=== PATIENT | male | born 1975 | race Caucasian/White ===

== ENCOUNTER 2017-02-04 16:36 | Inpatient (IN) | payer OTHER ==
--- NOTE | 2017-02-04 16:59 | EDPHY ---
H & P Source: Patient, RN/MD, Other - Medical/Surgical History Hx Asthma: No Hx Chronic Respiratory Disease: No Hx Diabetes: No Hx Cardiac Disease: No Hx Renal Disease: No Hx Cirrhosis: No Hx Alcoholism: No Hx HIV/AIDS: No Hx Splenectomy or Spleen Trauma: No Other PMH: hernia, cellulitis rt foot - Social History Smoking Status: Former smoker Time Seen by Provider: 02/04/17 16:49 HPI/ROS: HPI: This is a 41-year-old male who presents with Chief Complaint:M1 Location:psych Quality:M1 hold Duration: Few weeks Signs and Symptoms: + auditory and visual command hallucinations, + suicidal ideation with a plan, no homicidal ideation, + paranoid Timing: Acute on chronic Severity: Severe Context: History of schizoaffective disorder. Dr. Yuko Bliss, this is the current treating psychiatrist for patient. Patient has been involved with [facility] since 2008. He has been admitted both voluntary involuntary basis following hospitalizations for suicide attempts or suicidal ideation and psychosis. Patient has a history of mental illness and has been hospitalist after at least 3 serious suicide attempts, the last hospitalization for suicidal ideation being in 2012. Since 2013 Mr. Thakur has been compliant with medication living in his own apartment until recently he has begun to threaten suicide again is locked himself in his apartment and refuses to leave. Patient turning 41 years old soon is negatively reflecting on his life. One of his previous therapist is passing away and is very upset about this as well. He has localized that he wants to kill himself before the of his brothers baby because if he does after that could be harmful to the baby. Patient's last appointment at [facility] was approximately 2 weeks ago. He advises therapist that he has a 1000 mg of medication with him and he wants to take them all at once. In further conversation patient asked for 2 weeks applied medication is not to kill him. His therapist is concerned that he is no longer taking his medication rather hoarding with idea to use the pills to attempt suicide. Patient reports that he has not slept in 5 days. Went to a hotel last night and slept for approximately 12 hr but still feels extremely tired. He does report that he has not been taking his clonazepam or trazodone for the last few weeks did restart taking them on Saturday. When he returned her home from the hotel this afternoon there was up please card at his door and he called the number. He assumed he knew that is therapist was looking for him involuntarily came into the hospital for further evaluation and treatment. Denies any medical history. Denies chest pain, abdominal pain, nausea, vomiting. Modifying Factors: None Comment: ROS: see HPI Constitutional: No fever, no chills, no weight loss Eyes: No blurred vision Respiratory: No shortness of breath, no cough Cardiovascular: No chest pain Gastrointestinal: No nausea, no vomiting, no diarrhea Genitourinary: No dysuria Extremities: No myalgias Neurologic: No weakness, no numbness Skin: No rashes Hematologic: No bruising, no bleeding MEDICAL/SURGICAL/SOCIAL HISTORY: Medical history: Generally healthy. Does not take any regular medications. Surgical history: Tonsillectomy, bilateral inguinal hernia repair as an Social history: Unemployed. CONSTITUTIONAL: Polite and cooperative, tidy adult white male, awake and alert , no obvious distress HEENT: Atraumatic and normocephalic, PERRL, EOMI. Tympanic membranes clear. Oropharynx clear, no exudate and moist pink mucosa. Airway patent. No lymphadenopathy. No meningismus. Cardiovascular: Normal S1/S2, regular rate, regular rhythm, without murmur rub or gallop. PULMONARY/CHEST: Symmetrical and nontender. Clear to auscultation bilaterally. Good air movement. No accessory muscle usage. ABDOMEN: Soft, nondistended, nontender, no rebound, no guarding, no peritoneal signs, no masses or organomegaly. No CVAT. EXTREMITIES: 2/2 pulses, strength 5/5, no deformities, no clubbing, no cyanosis or edema. NEUROLOGICAL: no focal neuro deficits. GCS 15. SKIN: Warm and dry, no erythema. no rash. Good capillary refill. PSYCH: Fair eye contact, no flight of ideas, someone tangential disorganized thought process, relatively good insight and judgment, + auditory and visual command hallucinations, + suicidal ideation with a plan, no homicidal ideation, paranoid ([place]) Constitutional: Initial Vital Signs Temperature (C) 36.8 C 02/04/17 16:36 Heart Rate 117 H 02/04/17 16:36 Respiratory Rate 16 02/04/17 16:36 Blood Pressure 119/81 H 02/04/17 16:36 O2 Sat (%) 93 02/04/17 16:36 O2 Delivery Mode Room Air Allergies/Adverse Reactions: No Known Allergies Allergy (Unverified 07/08/14 15:36) Home Medications: Medication Instructions Recorded cloZAPine [Clozapine] 200 mg PO HS 02/04/17 traZODone [traZODONE 50MG (*)] 50 mg PO HS PRN 02/04/17 Medical Decision Making ED Course/Re-evaluation: 1700: M1 hold upon arrival. I agree with this as patient has active suicidal ideation with a plan with prior attempts. He has been noncompliant with his medications. Labs UDS ordered. Patient is currently calm and cooperative. No interventions ordered. 1830: Reviewed labs and UDS and medically clear. Reassessed patient who is sitting in the ER stretcher calmly watching TV. 2359: End of Shift. Signed over to Dr. Schmitt pending TLC evaluation and final disposition. Patient has remained calm and cooperative throughout entire shift. (Lorene Biggs) 0557: No acute events overnight. Patient is sleeping. 0700: Patient signed over to Dr. Burris at 7:00 a.m. shift change. Patient is ending mental health evaluation. Here on M1 hold suicidal ideation. Off his medications. (Hai Schmitt) Differential Diagnosis: Differential diagnosis includes but is not limited to the schizoaffective disorder, graham, psychosis, medication noncompliance, suicidal ideation. (Lorene Biggs) Other Provider: 07:40: Patient accepted for admission to [facility] by Dr. Cook. (Tee Burris) - Data Points Laboratory Results: Laboratory Results 02/04/17 17:32 02/04/17 17:32 Medications Given: Discontinued Medications Clozapine (Clozaril) 100 mg PO ONCE ONE Stop: 02/05/17 02:45 Last Admin: 02/05/17 03:04 Dose: 100 mg Departure - Departure Disposition: [facility] IP Clinical Impression: Suicidal ideations, Noncompliance with medication regimen Schizoaffective disorder Qualifiers: Schizoaffective disorder type: unspecified Qualified Code(s): F25.9 - Schizoaffective disorder, unspecified Condition: Fair Referrals: NONE *PRIMARY CARE P,. [Primary Care Provider] - As per Instructions
[2017-02-04 17:51] LABS: % IMMATURE GRANULYOCYTES 0.4 % (0.0-1.1); ABSOLUTE IMMATURE GRANULOCYTES 0.04 10^3/uL (0.00-0.10); ADD DIFF? NO; ADD MORPH? NO; ADD SCAN? NO; ATYPICAL LYMPHOCYTE FLAG 0 (0-99); FRAGMENT RBC FLAG 0 (0-99); HEMATOCRIT 46.8 % (40.0-51.0); HEMOGLOBIN 16.5 g/dL (13.7-17.5); LEFT SHIFT FLG 0 (0-99); LIPEMIA HEMOLYSIS FLAG 90 (0-99); MEAN CELL HEMOGLOBIN 32.2 pg (27.9-34.1); MEAN CELL HEMOGLOBIN CONCENTR. 35.3 g/dL (32.4-36.7); MEAN CELL VOLUME 91.2 fL (81.5-99.8); MEAN PLATELET VOLUME 10.5 fL (8.7-11.7); PLATELET CLUMPS FLAG 0 (0-99); PLATELET COUNT 153 10^3/uL (150-400); RED BLOOD CELL COUNT 5.13 10^6/uL (4.40-6.38); RED CELL DISTRIBUTION WIDTH 12.8 % (11.5-15.2)
[2017-02-04 18:16] LABS: ANION GAP 13 mEq/L (8-16); CALCIUM 9.6 mg/dL (8.5-10.4); CARBON DIOXIDE 28 mEq/l (22-31); CHLORIDE 101 mEq/L (97-110); CREATININE 0.9 mg/dL (0.7-1.3); ETHANOL SERUM < 10 mg/dL (0-10); GLOMERULAR FILTRATION RATE > 60; GLUCOSE 108 mg/dL (70-100); POTASSIUM 3.7 mEq/L (3.5-5.2); SODIUM 142 mEq/L (134-144)
[2017-02-05] MEDS ORDERED: cloZAPine 100 MG TAB PO ONE (02:44)
[2017-02-05] MEDS ORDERED: traZODone 50 MG TAB PO PRN (10:59)
[2017-02-05] MEDS ORDERED: LORazepam 0.5 MG TAB PO PRN (11:00)
[2017-02-05] MEDS ORDERED: OLANZapine DISINTEGR 10 MG TAB PO PRN (11:00)
[2017-02-05] MEDS ORDERED: ACETAMINOPHEN 325 MG TAB PO PRN (11:00)
[2017-02-05] MEDS ORDERED: MAGNESIUM HYDROXIDE 30 ML UDCUP PO PRN (11:00)
[2017-02-05] MEDS ORDERED: MAG HYDROX/AL HYDROX/SIMETH 30 ML UDCUP PO PRN (11:00)
[2017-02-05] MEDS ORDERED: NICOTINE POLACRILEX 2 MG GUM B PRN (11:00)
--- NOTE | 2017-02-05 11:29 | BAPA ---
[f rep st] ADMISSION PSYCHIATRIC ASSESSMENT DATE OF SERVICE: 02/05/2017 CHIEF COMPLAINT: "I had an episode and now it has passed." HISTORY OF PRESENT ILLNESS: Patient is a 41-year-old male with a history of schizoaffectiv e disorder. He is a patient of Dr. Yuko Bliss at [facility], and she called to discuss the case with me. She reports that the patient has been stable for some time and has been a client of here since 2008. She states that he has done very well on a combination of Effexor and Clozaril, tho ugh over the last month or so, has been decompensating. She states that he was noncompliant with [facility] appointments and was refusing to do medication levels to verify his compliance. She states david t in the last 2 weeks he has not come in for any appointments and was calling [facility] and elling him that he was going to kill himself. He stated to them that he had gone to [place] and h ad graphic plans of how he was going to kill himself, though they are unsure whether he actually went . They called the police to do a welfare check, and the special deputy sheriff went by his house numerous times, an d he was not home. They left a card and asked him to call them, and he did call them, and then they went back and brought him to the hospital on an M1 hold for evaluation. Once he got to the hospital, he stated that he had been taking all of his medicines and that he did have what he described as "an episode," but states that this passed. He described hearing voices and admitted to having thoughts of suicide, but he states this is completely resolved at this time and that he feels like he is in hi s normal state of mental health. He states he does not believe he needs to be in the hospital "becau se I am not a danger to myself or anyone else." He has been guarded, but compliant with instructions and states that he understands the process of mental health hospitalization and that he is on a 72-h our hold. He states he was given clozapine in the emergency department and is very sleepy and is min imally communicative at this time. He denies current auditory, visual or tactile hallucinations and repeatedly denies thoughts of suicide. PAST PSYCHIATRIC HISTORY: The patient has longstanding history of schizoaffective disorder. He has had 3 previous suicide attempts and 3 previous behavioral health admits related to these. The exact time of his last suicide attempt is unknown to me at this time. He is followed by Dr. Bliss at [facility] and was seeing a therapist in the community, whom he has apparently had a very good re lationship with, but who stopped her practice due to nisha Lyme disease. She then informed [facility] that she was dying of Lyme disease, and this was upsetting to the patient. ALLERGIES: No known medical allergies. CURRENT MEDICATIONS: Effexor XR 300 mg in the morning, Clozaril 300 mg at bedtime, trazodone 50 mg a t bedtime, and omega-3 fatty acids 2000 mg in the morning. PAST MEDICAL HISTORY: Noncontributory. SOCIAL HISTORY: The patient is single, has no dependents. He lives alone in an apartment. He has a few interactions outside of his therapeutic appointments and tends to isolate in his home. He state s he enjoys online britt. He has a mother and brother who live locally, with whom he states he has a good relationship. He notes no other legal problems or stresses at this time. He receives Social Security disability income. SUBSTANCE ABUSE HISTORY: Patient has a past history of heavy alcohol use, though has not drank in e past 5 years. He has no other history of drug use. ADMISSION LABORATORY: CBC shows a white count slightly up at 9.52, otherwise normal. Serum chemistr ies are normal. Urine drug screen is negative for all substances, and alcohol is less than detectabl e. MENTAL STATUS EXAMINATION: Reveals a healthy-appearing male. He is wearing hospital garb, lying in the hospital bed. He does awaken easily and makes eye contact, though prefers to lay down with his eyes closed during the interview. His affect is blunted, stable and appropriate. His mood is described as "fine." His thought process appears to be linear and goal directed. His thought con tent reveals no endorsement of auditory, visual or tactile hallucinations and no obvious delusional p rocesses. He is alert and oriented to person, place, time, and situation, and his sensorium is clear . His intellect appears to be at least average as evidenced by his educational history, fund of know ledge, and vocabulary. He denies any thoughts of suicide, homicide or violence. His insight and vasu gment appear to be marginal. IMPRESSION: Schizoaffective disorder, depressive type, chronic with acute exacerbation, acute suicid ality, chronic illness, marginal supports, past history of alcoholism. The patient is a 41-year-old male who presents at this time on a court-ordered evaluation o btained by Dr. Yuko Bliss from [facility] due to rather dramatic decompensation over the st 2 weeks. He was making repeated and graphic threats of suicide and apparently was suffering worse sybil psychosis. He states that this is all resolved at this time, and he appears to be calm and gener ally cooperative, though somewhat guarded at this time. PLAN: 1. Will [facility] on an M1 hold. 2. Will restart outpatient medications as per Dr. Bliss, and patient is agreeable to this. 3. Will monitor closely for any self-destructive behaviors or evidence of psychosis. 4. Will work with [facility] to formulate discharge plan. Estimated length of stay is 3-5 days. /[id number]/MODL
[2017-02-05] MEDS: OMEGA-3 FATTY ACIDS 1,000 MG CAP PO SCH (14:44)
[2017-02-05] MEDS: VENLAFAXINE XR 150 MG CAP PO SCH (14:44)
--- NOTE | 2017-02-05 18:37 | BCON ---
[f rep st] BEHAVIORAL HEALTH CONSULTATION INTERNAL MEDICINE CONSULTATION DATE OF CONSULTATION: 02/05/2017 REFERRING PHYSICIAN: Nikolas Cook MD REASON FOR REFERRAL: Medical clearance for inpatient behavioral health stay. HISTORY OF PRESENT ILLNESS: Mr. Gomez was brought to the emergency department by police on an M1 hold. His outpatient psychiatrist was concerned that he was hoarding medications with intent to take them all at once in a suicide attempt. He has a history of 3 prior suicide attempts, which have resulted in hospitalizations. He was evaluated by the mental health team and admitted for further psychiatric care. He is currently without any acute complaints. PAST MEDICAL HISTORY: Schizoaffective disorder. PAST SURGICAL HISTORY: He reports a tonsillectomy and a double hernia surgery when he was a child. MEDICATIONS: He was taking Clozaril and venlafaxine. ALLERGIES: There are no known drug allergies. SOCIAL HISTORY: He lives on disability. He has a history of heavy alcohol use , but he is now abstinent. He is a former tobacco smoker. He has an apartment. FAMILY HISTORY: Noncontributory. REVIEW OF SYSTEMS: He denies cough or dyspnea, weight change, fevers or chills , nausea, vomiting, constipation or diarrhea, and otherwise a 10-point review of systems is negative. PHYSICAL EXAM: VITAL SIGNS: Blood pressure is 108/67, heart rate is 60, respiratory rate is 14, oxygen saturation is 96% on room air. Temperature is 36.8 degrees centigrade. His weight is 90.7 kg for a body mass index of 25. GENERAL: This is a well-nourished, well-developed man, appears his chronologic age, cooperative and in no acute distress. HEENT: Extraocular movements are intact. Pupils are equal, round, and reactive to light. Mucous membranes are moist. Dentition is in good condition. NECK: Supple. HEART: Regular rate and rhythm with no murmurs, rubs or gallops. LUNGS: Clear to auscultation bilaterally. ABDOMEN: Benign. EXTREMITIES: There is no cyanosis, clubbing or edema. NEUROLOGIC: He is alert and oriented x3. Cranial nerves 2-12 are grossly intact. There is no focal weakness, and sensation is intact to light touch. LABORATORY STUDIES: Drawn in the emergency department: CBC revealed an elevated white blood cell count very slightly at 9.52. There was no left shift. Serum chemistry revealed normal renal function and electrolytes. Glucose was slightly elevated at 108, but this was likely not fasting. Toxicology screen in the serum was negative for ethyl alcohol, and the urine was negative for any substances of abuse. ASSESSMENT/RECOMMENDATIONS: 1. Mental health issues pending further evaluation and management per Psychiatry and the mental health team. 2. Normal exam with no acute medical concerns. I see no medical contraindications to this patient's continued stay on the inpatient behavioral health unit or to any psychiatric medications or procedures. Thank you very much for including me in the care of this patient and please do not hesitate to contact me or the hospitalist service should there be need for further medical evaluation. /[id number]/MODL MTDD
[2017-02-05] MEDS: cloZAPine 100 MG TAB PO SCH (20:44)
[2017-02-06 06:35] VITALS: O2SAT 94
[2017-02-06] MEDS: VENLAFAXINE XR 150 MG CAP PO SCH (09:01)
[2017-02-06] MEDS: OMEGA-3 FATTY ACIDS 1,000 MG CAP PO SCH (09:01)
--- NOTE | 2017-02-06 15:22 | SOAPPROG ---
SOAP Progress Note Assessment/Plan: Assessment: Plan: 02/06/17 15:22 Calmer, more interactive today. Will communicate with CR, decide next step. Subjective: PT seen, discussed with staff. Reports feeling "better" today. Isolating in his room, not attending groups. States SI has resolved. Cannot see the benefit in further hospitalization. Compliant with all meds. Offers no c/o's. Staff does not observe any positive signs of psychosis. Objective: Vital Signs Temp Pulse Resp BP Pulse Ox 34.5 C L 78 16 111/70 94 02/06/17 06:00 02/06/17 06:00 02/06/17 06:00 02/06/17 06:00 02/06/17 06:00 MSE: Poorly groomed, lying in bed. Sits up and speaks to me with good eye contact, pleasant demeanor. Calm, though guarded. Affect is blunted, stable, approp. Mood is "fine, normal." TP generally linear. TC reveals some ongoing paranoia, "I'm always paranoid. I always think people are talking about me." Endorses AH's today, stating, "I always here something, like in the background. " Denies SI. - Time Spent With Patient Time Spent With Patient: 25" ICD10 Worksheet Patient Problems: Problems Problem Status Onset Noncompliance with medication regimen Acute Schizoaffective disorder Acute Suicidal ideations Acute Alcohol dependence Active Schizoaffective disorder Active
[2017-02-06] MEDS: cloZAPine 100 MG TAB PO SCH (20:34)
[2017-02-07 06:52] VITALS: BP 121/72; PULSE 88; RESP 20; TEMP 97.3
[2017-02-07] MEDS: VENLAFAXINE XR 150 MG CAP PO SCH (08:59)
[2017-02-07] MEDS: OMEGA-3 FATTY ACIDS 1,000 MG CAP PO SCH (08:59)
[2017-02-08 04:17] LABS: CLOZAPINE 147 ng/mL (>350); CLOZAPINE+NORCLOZAPINE 218 ng/mL (>450); NORCLOZAPINE 71 ng/mL
== END 2017-02-07 14:25 | disposition home or self-care (01) | DRG 885 ==
LOC: BBEH 02-05 08:40
PROVIDERS: ADMIT Psychiatry & Neurology Psychiatry; ATTEND Psychiatry & Neurology Psychiatry
DX: F25.1 Schizoaffective disorder, depressive type (principal); Z91.128 Patient's intentional underdosing of medication regimen for other reason; Z87.891 Personal history of nicotine dependence
CPT/HCPCS: 80159-90; 80305; G0480

== ENCOUNTER 2017-04-01 22:24 | Inpatient (IN) | payer OTHER ==
--- NOTE | 2017-04-01 22:31 | EDPHY ---
H & P Source: Patient, Police - Medical/Surgical History Hx Asthma: No Hx Chronic Respiratory Disease: No Hx Diabetes: No Hx Cardiac Disease: No Hx Renal Disease: No Hx Cirrhosis: No Hx Alcoholism: No Hx HIV/AIDS: No Hx Splenectomy or Spleen Trauma: No Other PMH: hernia, cellulitis rt foot - Social History Smoking Status: Former smoker HPI/ROS: HPI CHIEF COMPLAINT: Court ordered M1 hold HISTORY OF PRESENT ILLNESS: This patient is a 42-year-old male who is brought into the emergency room by police for court-ordered M1 hold. Patient has a history of schizophrenia, he has not been taking any of his medications. He denies being suicidal. He has a history of multiple psychiatric hospitalizations and multiple suicide attempts. Upon arrival here he is calm and cooperative. He is on a court order hold and needs mental health evaluation and medical clearance. Past Medical History: Schizophrenia, depression Past Surgical History: Inguinal hernia surgery Social History: Alcohol use frequently denies illicit drugs or tobacco. Family History: Noncontributory ROS REVIEW OF SYSTEMS: A comprehensive 10 point review of systems is otherwise negative aside from elements mentioned in the history of present illness. Exam Constitutional appears well nontoxic no acute distress triage nursing summary reviewed, vital signs reviewed, awake/alert. Eyes normal conjunctivae and sclera, EOMI, PERRLA. HENT normal inspection, atraumatic, moist mucus membranes, no epistaxis, neck supple/ no meningismus, no raccoon eyes. Respiratory clear to auscultation bilaterally, normal breath sounds, no respiratory distress, no wheezing. Cardiovascular rate normal, regular rhythm, no murmur, no edema, distal pulses normal. Gastrointestinal soft, non-tender, no rebound, no guarding, normal bowel sounds, no distension, no pulsatile mass. Genitourinary no CVA tenderness. Musculoskeletal no midline vertebral tenderness, full range of motion, no calf swelling, no tenderness of extremities, no meningismus, good pulses, neurovascularly intact. Skin pink, warm, & dry, no rash, skin atraumatic. Neurologic awake, alert and oriented x 3, AAOx3, moves all 4 extremities equally, motor intact, sensory intact, CN II-XII intact, normal cerebellar, normal vision, normal speech. Psychiatric normal mood/affect. Heme/Lymph/Immune no lymphadenopathy. Differential Diagnosis: Includes but is not limited to in a particular order cord M1 hold, gravely disable, schizophrenia, depression Medical Decision Making: Plan for this patient he is on a court ordered M1 hold. He will need mental health evaluation and medical clearance. Re-evaluation: 2357: Patient has been accepted by Dr. Cook at [address] [place] [address] inpatient psychiatric hospitalization in the a.m.. Placed on M1 Hold. Will at some-point be transferred when bed available. 0700: Signed over to Dr. Valentino at 7am shift-change. (Hai Schmitt) Constitutional: Initial Vital Signs Temperature (C) 36.5 C 04/01/17 22:29 Heart Rate 112 H 04/01/17 22:29 Respiratory Rate 18 04/01/17 22:29 Blood Pressure 119/95 H 04/01/17 22:29 O2 Sat (%) 95 04/01/17 22:29 O2 Delivery Mode Room Air Allergies/Adverse Reactions: No Known Allergies Allergy (Verified 04/01/17 22:40) Home Medications: Medication Instructions Recorded cloZAPine [Clozaril (*)] 300 mg PO HS #14 tab 02/07/17 Medical Decision Making ED Course/Re-evaluation: I assumed care of the patient at 0700 pending psychiatric disposition. 10:00 a.m.: The patient has been accepted for inpatient psychiatric hospitalization by Dr. Cook at [facility]. I have filled out the EMTALA transfer form. (Bharat Valentino) - Data Points Laboratory Results: Laboratory Results 04/01/17 22:40 04/01/17 22:40 04/01/17 04/01/17 04/01/17 23:17 22:40 22:40 WBC 6.43 10^3/uL 10^3/uL (3.80-9.50) RBC 5.22 10^6/uL 10^6/uL (4.40-6.38) Hgb 16.6 g/dL g/dL (13.7-17.5) Hct 46.1 % % (40.0-51.0) MCV 88.3 fL fL (81.5-99.8) MCH 31.8 pg pg (27.9-34.1) MCHC 36.0 g/dL g/dL (32.4-36.7) RDW 13.1 % % (11.5-15.2) Plt Count 246 10^3/uL 10^3/uL (150-400) MPV 10.0 fL fL (8.7-11.7) Neut % (Auto) 60.6 % % (39.3-74.2) Lymph % (Auto) 25.8 % % (15.0-45.0) [place] % (Auto) 12.9 % % (4.5-13.0) Eos % (Auto) 0.2 % L % (0.6-7.6) Baso % (Auto) 0.3 % % (0.3-1.7) Nucleat RBC Rel Count 0.0 % % (0.0-0.2) Absolute Neuts (auto) 3.90 10^3/uL 10^3/uL (1.70-6.50) Absolute Lymphs (auto) 1.66 10^3/uL 10^3/uL (1.00-3.00) Absolute Monos (auto) 0.83 10^3/uL H 10^3/uL (0.30-0.80) Absolute Eos (auto) 0.01 10^3/uL L 10^3/uL (0.03-0.40) Absolute Basos (auto) 0.02 10^3/uL 10^3/uL (0.02-0.10) Absolute Nucleated RBC 0.00 10^3/uL 10^3/uL (0-0.01) Immature Gran % 0.2 % % (0.0-1.1) Immature Gran # 0.01 10^3/uL 10^3/uL (0.00-0.10) Sodium 140 mEq/L mEq/L (135-145) Potassium 4.2 mEq/L mEq/L (3.5-5.2) Chloride 103 mEq/L mEq/L (97-110) Carbon Dioxide 16 mEq/l L mEq/l (22-31) Anion Gap 21 mEq/L H mEq/L (8-16) BUN 8 mg/dL mg/dL (7-23) Creatinine 0.8 mg/dL mg/dL (0.7-1.3) Estimated GFR > 60 Glucose 227 mg/dL H mg/dL (70-100) Calcium 9.7 mg/dL mg/dL (8.5-10.4) Urine Opiates Screen NEGATIVE (NEGATIVE) Urine Barbiturates NEGATIVE (NEGATIVE) Ur Phencyclidine Scrn NEGATIVE (NEGATIVE) Ur Amphetamine Screen NEGATIVE (NEGATIVE) U Benzodiazepines Scrn NEGATIVE (NEGATIVE) Urine Cocaine Screen NEGATIVE (NEGATIVE) U Marijuana (THC) Screen NEGATIVE (NEGATIVE) Ethyl Alcohol 167 mg/dL H mg/dL (0-10) Departure - Departure Disposition: [facility] IP Clinical Impression: Schizophrenia Qualifiers: Schizophrenia type: other Qualified Code(s): F20.89 - Other schizophrenia Condition: Fair Referrals: NONE *PRIMARY CARE P,. [Primary Care Provider] - As per Instructions
[2017-04-01 23:02] LABS: PLATELET COUNT 246 10^3/uL (150-400)
[2017-04-02] MEDS ORDERED: MAG HYDROX/AL HYDROX/SIMETH 30 ML UDCUP PO PRN (14:25)
[2017-04-02] MEDS ORDERED: ACETAMINOPHEN 325 MG TAB PO PRN (14:25)
[2017-04-02] MEDS ORDERED: NICOTINE POLACRILEX 2 MG GUM B PRN (14:25)
[2017-04-02] MEDS ORDERED: MAGNESIUM HYDROXIDE 30 ML UDCUP PO PRN (14:25)
[2017-04-02] MEDS ORDERED: OLANZapine DISINTEGR 10 MG TAB PO PRN (14:25)
--- NOTE | 2017-04-02 18:15 | BCON ---
[f rep st] BEHAVIORAL HEALTH CONSULTATION INTERNAL MEDICINE CONSULTATION DATE OF CONSULTATION: 04/02/2017 REFERRING PHYSICIAN: Nikolas Cook MD REASON FOR REFERRAL: Medical clearance for inpatient behavioral health stay. HISTORY OF PRESENT ILLNESS: This patient was brought to the emergency room by police for court-ordered M1 hold. He has a history of schizophrenia and he had not been taking his medications. He was evaluated by the mental health team and admitted for further psychiatric care. Currently, he is without any acute complaints. PAST MEDICAL HISTORY: 1. Schizophrenia. 2. Inguinal hernia. PAST SURGICAL HISTORY: He had an inguinal hernia surgery as a child. SOCIAL HISTORY: He lives alone. He spends his days hiking and in his evenings , playing video games with friends. He is a former smoker. He uses alcohol. He is on SSDI and does not work. FAMILY HISTORY: Noncontributory. MEDICATIONS: He had been prescribed Clozaril but he was not compliant. ALLERGIES: There are no known drug allergies. REVIEW OF SYSTEMS: A 10-point review of systems was conducted and was negative. PHYSICAL EXAM: VITAL SIGNS: Blood pressure is 130/74, heart rate is 68, respiratory rate is 15, oxygen saturation is 95% on room air, temperature is 36.5 degrees centigrade. His weight is 89.4 kg for a body mass index of 24.6. GENERAL: This is a well-nourished, well-developed man, somewhat unkempt with an unshaven champion, cooperative and in no acute distress. HEENT: Extraocular movements are intact. Pupils are equal, round, and reactive to light. Mucous membranes are moist. Dentition is in good condition. NECK: Supple. HEART: There is a regular rate and rhythm with no murmurs, rubs, or gallops. LUNGS: Clear to auscultation bilaterally. ABDOMEN: Benign. EXTREMITIES: There is no cyanosis, clubbing, or edema. NEUROLOGIC: He is alert and oriented x3. Cranial nerves 2-12 are grossly intact. There is no focal weakness. Sensation is intact to light touch, and gait is within normal limits. LABORATORY STUDIES: From the emergency department, CBC was overall within normal limits. Serum chemistry revealed a low carbon dioxide at 16, an elevated anion gap at 21, blood sugar was elevated at 227 but this was likely not fasting. Otherwise, renal function and electrolytes were within normal limits. Toxicology screen in the serum was positive for ethyl alcohol at 167 mg /dL. A toxicology screen in the urine was negative for any substances of abuse. ASSESSMENT AND RECOMMENDATIONS: 1. Mental health issues and medical noncompliance, pending further evaluation and management per Psychiatry and the mental health team. 2. Alcohol intoxication with an elevated ethyl alcohol blood level when evaluated in the emergency department. He did not show any signs or symptoms of withdrawal. 3. Anion gap. This is likely metabolic acidosis due to metabolic products of alcohol intoxication. There is no need for any further evaluation as he does not appear otherwise to be ill at present. I see no medical contraindications to this patient's continued stay on the inpatient behavioral health unit or to any psychiatric medications or procedures. Thank you very much for including me in the care of this patient. Please do not hesitate to contact me or the hospitalist service should there be need for further medical evaluation. /[id number]/MODL MTDD
[2017-04-02] MEDS: LORazepam 0.5 MG TAB PO PRN (21:06)
[2017-04-03] MEDS ORDERED: OLANZapine DISINTEGR 10 MG TAB PO PRN (14:31)
--- NOTE | 2017-04-03 16:49 | BAPA ---
[f rep st] ADMISSION PSYCHIATRIC ASSESSMENT DATE OF SERVICE: 04/03/2017 CHIEF COMPLAINT: "A few text messages telling my psychiatrist and therapist that I don't want to work with them any more." HISTORY OF PRESENT ILLNESS: This is a 42-year-old man with history of schizoaffective disorder, [facility]. Patient is a client at [facility] and has been a client there since 2008. His outpatient psychiatrist through [facility] is Dr. Yuko Bliss, who was the one who completed the petition for court ordered evaluation. In Dr. Bliss's petition to the court dated March 29, 2017, she stated the following: "Mr. Gomez has been a patient with [facility] since 2008. He has been admitted on both a voluntary and involuntary basis following hospitalization for suicide attempts and grave disability. Mr. Gomez has a serious chronic mental illness and has been hospitalized after at least 4 serious suicide attempts; the last attempt was in 2012. In January of 2017, Mr. Gomez became acutely suicidal and began refusing treatment. He discontinued his meds and began hoarding them. He made multiple threatening statements to end his life. An involuntary petition was issued, and Mr. Gomez was evaluated and hospitalized. During the hospitalization, patient agreed to voluntary treatment for his mental illness, therefore no certification was issued. He has been progressing in his treatment, living in his apartment and taking medications, until an abrupt and concerning change in his behavior beginning March 25, 2017. This week, presented several out of character behaviors including refusing to attend appointments and discontinuing his medication. He initiated several profane, insulting and irrational communications to staff at [facility], peers, and to his brother Kleber. Multiple persons have presented their concerns to his treatment team regarding his change in behavior and the severe nature of his comments. has stated blatant disregard for his own life on multiple occasions during this week stating 'I don't care about me or my life, just help other people.' He reported to his brother that he is harming himself by hitting himself with a hammer. His brother reported that his messages are becoming more nonsensical. All of these are highly uncharacteristic and not present when he is stable. On March 25 and , sent me multiple text messages stating he would no longer seek treatment or take medication. He also stated that he had no regard for seeking help for protecting his life, 'I don't care about me I'll for everyone.' On March 28 and he missed appointments, which he was aware he had. On March 28, he failed to order picker/assembler the medication and he ignored messages left for him by [facility] staff." When this MD met with the patient on the inpatient Behavioral Health Services Unit on [address] [place] [address], he was pleasant, cooperative, calm, logical, linear, coherent. He was alert oriented x4. His speech was fluent and spontaneous. He denied any symptoms of psychosis. There was no evidence of graham. He denied feeling depressed and he also denied thoughts about wanting to hurt himself or hurt anyone else. This MD discussed the petition made by Dr. Bliss, and the patient said that he agreed he had been acting "erratic" for the past couple of weeks. He said that included "talking about suicide a lot." He said that he has "lost hope" and was not feeling like he had any reason to go on living. He said this was a dramatic change in how he had felt over the past several months. He said "for the past several years I've been really happy and leading a regular life" up until the time that he was admitted to [address] [place] [address] in January under similar situations where he had decompensated and gone off his medications. He said he does not know why he stopped taking his medications. He reports "I got lazy and stupid I guess. " He said "I was doing really well after I left here the last time (January 2017)." He says that he has been not compliant with his treatment or with his medications and that he has also stopped doing other things that are important for his mental health. He said that he has stopped going to the gym for about 2 months. He said "I'm not eating well and I'm not taking care of myself." He says "I don't know why I do this, it's really stupid. I know what I need to do and those things are necessary for me, and I know they make me feel better." The patient states that his brother just recently had a baby and he and his have moved to [place], and they used to live in [place] and the patient used to have more regular contact with them. He says now that his brother lives in [place] "we play video games online together, but I don't really see him that much." The patient states that he has not felt safe or comfortable in his apartment for the past couple of months because "of all the construction going on in my area." He also says that the maintenance staff have been coming in and out of his apartment to do some "remodeling and fixing things up. " He says that when they come in they always leave note letting him know that they have been there. He says "when I come home and see a note on my door I get really scared, I think I'm being evicted." He also says that knowing that people are coming in and out of his apartment when he is not there makes him "very paranoid." He says over the last several weeks " I know everything's been going to shit" but patient states that he "didn't do the right things to stop it." The patient says when things get really bad in his life "I turn to alcohol." He says that he knows that once he starts drinking it "just makes things worse. I don't need to be drinking at all." The patient states that he relapsed over the last several weeks, but will not give a definite timeline, it may have been longer. He is very vague and will not give details about how much he is drinking or how often. His BAL in the emergency department is 167. During his interview with the MD today, patient denied feeling helpless, hopeless. Denied sadness. Said that he is not feeling depressed. He no longer is having thoughts of wanting to hurt himself or anyone else. When MD asked what had changed since he still was not given any medications last night or this morning until he was seen by a psychiatrist, he states "I don 't know. I always feel safe and comfortable when I come here to the hospital." He says "I do really well here" and says "the same thing happened to me last time I was here." Based upon Dr. Cook's notes from his previous admission, which was from 02/07/2017-02/09/2017, at that time the patient also was much more stable than when he was admitted. Dr. Cook noted the patient almost immediately started feeling better, that he was attending groups. He notes that the patient states "his SI has resolved." He was compliant with all medications. He had no complaints. He did not endorse any symptoms of psychosis or graham, and Dr. Cook noted "staff did not observe any positive signs of psychosis." PAST PSYCHIATRIC HISTORY: The patient has a long-standing history of schizoaffective disorder. He has 3 previous suicide attempts and 3 previous behavioral health admissions. The last time he made a suicide attempt, according to Dr. Bliss, was in 2012. The patient also reports that he had suicide attempts when he was 30 and 33 years old; both were overdoses with pills. He has made suicidal threats and has engaged in self-harm behaviors, most recently in January 2017 when he was hospitalized here at [address] [place] [address], that was his last psychiatric hospitalization from January 29 to 02/09/2017. At that time, the patient was making threats to hurt himself and stated that he had been hoarding medications with a plan to overdose, but he never actually acted on those plans. He is currently seeing Dr. Yuko Bliss at [facility], but no longer has any outpatient therapist. He was seeing a therapist in the community prior to his admission in January 2017, but stopped going to see her when she closed her practice due to nisha Lyme disease. The patient said that he had met that therapist through the alcohol education program through [facility], and she was a certified addictions counselor, and he said that he really enjoyed going to see her. ALLERGIES: The patient has no known medication allergies. CURRENT MEDICATIONS: The patient is supposed to be taking Effexor XR 300 mg p.o., Clozaril 300 mg p.o. at bedtime, and Remeron 15 mg p.o. at bedtime. But he states that he has not taken any of his medications for at least 2 weeks, possibly longer. He started leaving messages at [facility] as long ago as the and the , stating that he was not going to take the medications and was not going to come to his appointment. PAST MEDICAL HISTORY: Noncontributory. PAST SURGICAL HISTORY: Patient had inguinal hernia repair when he was a child. SOCIAL HISTORY: The patient is single, has no dependency. He lives alone in an apartment here in [place]. He has few interactions outside of his [facility] appointments. He does play video games online. He has a brother who is and just recently had a baby, who was living in [place] but recently moved to [place]. They stay in contact by phone, but they do not see each other in person as often since the brother has moved to [place]. His mother is still alive, she lives in [place]. His father is . The patient is currently on SSDI for his chronic severe mental illness. Patient denies any childhood history of physical, emotional, or sexual abuse. SUBSTANCE ABUSE HISTORY: Patient has a history of heavy alcohol use. He had been sober for approximately 5 years, but relapsed sometime within the last 5 weeks since he was discharged from the hospital at the end of January. The patient is very vague about when he started drinking, and does not give any details about how much alcohol he has been consuming or how frequently. His BAL in the ED was 167. He does admit to relapsing. The patient denies any marijuana use. He denies any use of any other illicit substances. His urine drug screen was negative for all substances other than alcohol. LEGAL HISTORY: Patient does have a DUI approximately 10 years ago. He was doing alcohol education through the [facility] here in [place], that seemed to be more recent, and so it is not clear whether that was due to a DUI or if he had more recent legal charges. There is some inconsistency in the records and his report. LABORATORY DATA: Admission labs were done in the [facility] ED. His white cell count was 6.43, hemoglobin 16.6, hematocrit 46.1, platelet count was 246. Absolute neutrophil count was 3.90, that was down from 8.04 back in January of 2017. His sodium level was 140, potassium was 4.2, chloride was 103, BUN was 8 , creatinine 0.8, glucose was 227; but that was nonfasting, his calcium was 9.7. Urine drug screen was negative for all drugs of abuse. His blood alcohol level is 167. MENTAL STATUS EXAMINATION: This is a tall, slightly overweight, well-developed man. He is disheveled, ill kempt. Does not look like he has washed his hair in a while. He initially was wearing a wool cap, but took that off. He is sitting at a table. He is alert and oriented x4. Sensorium is clear. He is pleasant and cooperative. Interacts appropriately with the interviewer. He denies any psychotic symptoms. There is no evidence of acute psychosis. No evidence of responding to internal stimuli. He denies feeling paranoid or having active hallucinations at this time. He also denies feeling depressed or sad. He denies feeling helpless or hopeless, which he had reported prior to his admission. He denies any thoughts, plans or intents to hurt himself or anyone else. His intellect appears to be above-average based upon his educational history and vocabulary. IMPRESSION: 1. Schizoaffective disorder, depressed type. 2. Alcohol use disorder, severe. 3. Psychosocial stressors include recent relapse on alcohol, lack of social support, living far away from his family, recent relocation of his brother to [place], noncompliance with treatment, and chronic mental illness. PLAN: 1. Admit to behavioral health services inpatient unit on an M1 hold. 2. Monitor closely for safety and on suicide precautions. At this time patient is able to contract for safety. Currently denying any SI or HI. 3. The patient states that he would like to be back on his medication and is willing to voluntarily take medications and continue in treatment with [facility]. He says "I know I told them I wouldn't come back and see them, but that's not true anymore." Patient agrees that he will keep his followup appointment with Dr. Bliss. He states that he would like to see a therapist in the community, since he feels like he does not get individual or group therapy through [facility], he says "it's mostly case management." He says that he would be open to the possibility of seeing another certified addictions counselor, which could be helpful for his alcohol dependency. The patient has done Alcoholics Anonymous in the past, but says he has not been attending groups in several years. He has no sponsor. Says he is open to the idea of considering going back to AA, but is adamant that "I'm not going to drink when I get out of here". 4. discussed the risks, benefits and side effects of his current medications , particularly talked about drug interactions and particularly the risk of potential adverse affects when combining his current medications with alcohol. Patient says, "I'm not going to drink, I don't usually drink. I don't know what happened to me." MD let the patient know that since he has been off medications for at least 10 days if not longer, they will need to restart both the Effexor and the Clozaril at much lower doses and gradually titrate them up over the next several weeks. The patient says that he agrees to that. As long as he is stable and not a danger to himself or others and not gravely disabled, he could be discharged from the hospital and he could have the dose titration completed when he sees Dr. Bliss at [facility]. 5. The patient will attend groups and participate in milieu activities. We will continue to monitor and observe him for any signs or symptoms of worsening mental illness. 6. Estimated length of stay is 3-5 days. /[id number]/MODL MTDD
--- NOTE | 2017-04-03 18:24 | SOAPPROG ---
SOAP Progress Note Assessment/Plan: Assessment: Cellulitis, right foot. Will treat with Bactrim DS 1 twice daily x5 days. Observe for resolution of symptoms. Abrasions on foot. Treat with SilvaSorb gel and cover with nonstick dressing. Change dressing q.day. 04/03/17 18:20 Subjective: Asked to see patient regarding foot pain. He reports the [place] area on his right dorsal foot which is red swollen and tender. He has abrasions on the foot resulting from wearing flip-flops and shoes and doing a lot of walking. He denies fevers or chills. He has minimal pain at rest but it hurts when he bears weight. Objective: Vital Signs Temp Pulse Resp BP Pulse Ox 36.6 C 84 16 103/59 L 94 04/03/17 06:00 04/03/17 06:00 04/03/17 06:00 04/03/17 06:00 04/03/17 06:00 Physical Exam - Physical Exam General Appearance: WD/WN, alert, no apparent distress Skin: other (Right foot dorsum with ulcerations x2 approximately 1 cm each with eschar. The more anterior of the 2 has surrounding erythema and swelling. It is tender to palpation.) ICD10 Worksheet Patient Problems: Problems Problem Status Onset Schizophrenia Acute Alcohol dependence Active Schizoaffective disorder Active Noncompliance with medication regimen Acute Schizoaffective disorder Acute Suicidal ideations Acute
[2017-04-03] MEDS ORDERED: cloZAPine 25 MG TAB PO SCH (21:00)
[2017-04-03] MEDS: SULFAMETHOX/TMP 800/160 MG 1 TAB PO SCH (21:07)
[2017-04-03] MEDS: MIRTAZAPINE 15 MG TAB PO SCH (21:07)
[2017-04-04] MEDS: SULFAMETHOX/TMP 800/160 MG 1 TAB PO SCH ×2 (11:18→21:00)
[2017-04-04] MEDS: VENLAFAXINE XR 37.5 MG CAP PO SCH (11:19)
[2017-04-04] MEDS ORDERED: IBUPROFEN 600 MG TAB PO PRN (16:18)
[2017-04-04] MEDS ORDERED: cloZAPine 25 MG TAB PO SCH (16:48)
--- NOTE | 2017-04-04 16:53 | SOAPPROG ---
SOAP Progress Note Assessment/Plan: Assessment: 42 yo man with h/o schizoaffective disorder and alcohol use disorder. He is followed by Dr. Bliss at [facility]. He decompensated since his d/c from [facility] in on 02/09/17. He stopped taking meds sometime before March 25, and has also been drinking alcohol after several years of sobriety. Plan: 04/04/17 16:48 1. Patient agreed to restart Clozaril and Effexor yesterday. He denies any SE's or complaints today. Will increase Clozaril to 50mg HS tonight. 2. Plan is to continue to titrate Clozaril back to previous dose of 300mg HS. He was also taking Effexor XR 300mg. 3. Dr. Bliss or another staff person from [facility] will come to evaluate patient prior to discharge. 4. MD strongly encouraged patient to consider 1:1 therapy with [facility] and/or SA groups, but patient says he "won't drink" after he discharges. Patient minimizes role his alcohol use played in his decompensation despite admitting he knows "everything turns to shit" when he starts drinking. 5. Possible d/c early next week. Subjective: Met with patient, reviewed chart and d/w staff. Patient is calm, cooperative, pleasant. He is sitting on couch, wearing same clothes as yesterday. He has not showered or washed his hair, still wearing wool cap. Patient says he feels "OK" and denies any SE's from meds. He says he would like to leave "as soon as possible" and agrees to meet with staff from [facility] to help plan his aftercare treatment. Objective: Vital Signs Temp Pulse Resp BP Pulse Ox 36.5 C 67 14 112/58 L 96 04/04/17 06:00 04/04/17 06:00 04/04/17 06:00 04/04/17 06:00 04/04/17 06:00 MSE: Affect: Euthymic Mood: "OK" TP: Linear TC: Denies any SI/HI, no AH/VH Insight/Judgment: Fair - Time Spent With Patient Time Spent With Patient: 20" - Pending Discharge Pending Discharge Within 24 Hours: No Pending Discharge Within 48 Hours: No ICD10 Worksheet Patient Problems: Problems Problem Status Onset Schizophrenia Acute Alcohol dependence Active Schizoaffective disorder Active Noncompliance with medication regimen Acute Schizoaffective disorder Acute Suicidal ideations Acute
[2017-04-04] MEDS: MIRTAZAPINE 15 MG TAB PO SCH (21:00)
[2017-04-05] MEDS: SULFAMETHOX/TMP 800/160 MG 1 TAB PO SCH ×2 (09:49→20:38)
[2017-04-05] MEDS: VENLAFAXINE XR 37.5 MG CAP PO SCH (09:49)
--- NOTE | 2017-04-05 16:10 | SOAPPROG ---
SOAP Progress Note Assessment/Plan: Assessment: 42 yo man with h/o schizoaffective disorder and alcohol use disorder. He is followed by Dr. Bliss at [facility]. He decompensated since his d/c from [facility] on 02/09/17. He stopped taking meds sometime before March 25, and has also been drinking alcohol after several years of sobriety. Plan: 04/04/17 16:48 1. Patient agreed to restart Clozaril and Effexor yesterday. He denies any SE's or complaints today. Will increase Clozaril to 50mg HS tonight. 2. Plan is to continue to titrate Clozaril back to previous dose of 300mg HS. He was also taking Effexor XR 300mg. 3. Dr. Bliss or another staff person from [facility] will come to evaluate patient prior to discharge. 4. MD strongly encouraged patient to consider 1:1 therapy with CAC and/or SA groups, but patient says he "won't drink" after he discharges. Patient minimizes role his alcohol use played in his decompensation despite admitting he knows "everything turns to shit" when he starts drinking. 5. Possible d/c early next week. 04/05/17 16:04 1. and Rustam REDMAN, met with Dr. Bliss, patient's OP psych MD, and VITA Paz from [facility]. They were not aware patient had relapsed on alcohol. They both agreed that when patient has been drinking in the past, he can be "very irritable" and "belligerent." This likely accounts for the "profanity" and angry phone calls that Dr. Bliss and [facility] staff received from patient last week. It might also account for his bizarre, erratic behavior and "uncharacteristic" behavior reported by staff and Dr. Bliss. 2. Dr. Bliss is concerned patient might have been in mixed episode of bipolar disorder given his mood swings, irritability and reckless behavior. However, it' s just as likely his condition was the result of alcohol use. Nevertheless, Dr. Bliss requested to d/c Effexor XR and start Lamictal. Patient agreed to this change. 3. [facility] would also like patient to d/c to [facility] on 04/09/17. Patient has agreed. 4. MD talked to patient about the r/b/se's of Antabuse, Naltrexone and Campral. Patient said he has taken Antabuse before and doesn't want to try it again. He also says, "I don't have cravings for alcohol" and doesn't think Naltrexone/ Campral would "help." He is willing to talk to SA counselor. 5. Voluntary Subjective: Met with patient, reviewed chart and d/w staff. Patient is sitting at table, calm, pleasant, cooperative. He does not have pressured speech, racing thoughts , increased activity or decreased need for sleep. He denies any physical SE's or complaints since re-starting meds. He agrees to the med changes recommended by Dr. Bliss, but doesn't want to take any meds for alcoholism. He denies any thoughts, plan or intent to hurt himself or anyone else. He denies any active hallucination or delusions. Objective: Vital Signs Temp Pulse Resp BP Pulse Ox 36.3 C 105 H 12 121/83 H 92 04/05/17 14:39 04/05/17 14:39 04/05/17 14:39 04/05/17 14:39 04/05/17 14:39 MSE: Affect: Euthymic Mood: "Fine" TP: Linear TC: No SI/HI, no AH/VH, no paranoia Insight/Judgment: Fair - Time Spent With Patient Time Spent With Patient: 20" - Pending Discharge Pending Discharge Within 24 Hours: No Pending Discharge Within 48 Hours: No ICD10 Worksheet Patient Problems: Problems Problem Status Onset Schizophrenia Acute Alcohol dependence Active Schizoaffective disorder Active Noncompliance with medication regimen Acute Schizoaffective disorder Acute Suicidal ideations Acute
[2017-04-05] MEDS ORDERED: cloZAPine 25 MG TAB PO SCH (16:14)
[2017-04-05] MEDS: MIRTAZAPINE 15 MG TAB PO SCH (20:39)
[2017-04-05] MEDS ORDERED: lamoTRIgine 25 MG TAB PO SCH (21:00)
[2017-04-06] MEDS: SULFAMETHOX/TMP 800/160 MG 1 TAB PO SCH ×2 (08:33→20:45)
[2017-04-06] MEDS: lamoTRIgine 25 MG TAB PO SCH (08:33)
--- NOTE | 2017-04-06 13:28 | SOAPPROG ---
SOAP Progress Note Assessment/Plan: Assessment: 42 yo man with h/o schizoaffective disorder and alcohol use disorder. He is followed by Dr. Bliss at [facility]. He decompensated since his d/c from [facility] in on 02/09/17. He stopped taking meds sometime before March 25, and has also been drinking alcohol after several years of sobriety. Plan: 04/04/17 16:48 1. Patient agreed to restart Clozaril and Effexor yesterday. He denies any SE's or complaints today. Will increase Clozaril to 50mg HS tonight. 2. Plan is to continue to titrate Clozaril back to previous dose of 300mg HS. He was also taking Effexor XR 300mg. 3. Dr. Bliss or another staff person from [facility] will come to evaluate patient prior to discharge. 4. MD strongly encouraged patient to consider 1:1 therapy with CAC and/or SA groups, but patient says he "won't drink" after he discharges. Patient minimizes role his alcohol use played in his decompensation despite admitting he knows "everything turns to shit" when he starts drinking. 5. Possible d/c early next week. 04/05/17 16:04 1. and Rustam REDMAN, met with Dr. Bliss, patient's OP psych MD, and VITA Paz from [facility]. They were not aware patient had relapsed on alcohol. They both agreed that when patient has been drinking in the past, he can be "very irritable" and "belligerent." This likely accounts for the "profanity" and angry phone calls that Dr. Bliss and [facility] staff received from patient last week. It might also account for his bizarre, erratic behavior and "uncharacteristic" behavior reported by staff and Dr. Bliss. 2. Dr. Bliss is concerned patient might have been in mixed episode of bipolar disorder given his mood swings, irritability and reckless behavior. However, it' s just as likely his condition was the result of alcohol use. Nevertheless, Dr. Bliss requested to d/c Effexor XR and start Lamictal. Patient agreed to this change. 3. [facility] would also like patient to d/c to [facility] on 04/09/17. Patient has agreed. 4. MD talked to patient about the r/b/se's of Antabuse, Naltrexone and Campral. Patient said he has taken Antabuse before and doesn't want to try it again. He also says, "I don't have cravings for alcohol" and doesn't think Naltrexone/ Campral would "help." He is willing to talk to SA counselor. 5. Voluntary 04/06/17 13:24 1. Met with patient with Alia REDMAN present. He is tolerating the Lamictal and denies any SE's, no rash. 2. Patient says he feels "really groggy" as Clozaril is being increased. He says , "the same thing happened when I first started taking it." MD advised to decrease Remeron while he is feeling so sedated and having no problem sleeping. Patient agreed with this plan. Patient slept 9.5 hrs last night. 3. Patient says he would like to talk to Jackson and Dr. Bliss next week about [facility]. After initially agreeing to go there "if that what they want." He told MD today he wants to go home instead. 4. Likely d/c middle of next week. [place] [facility] team strongly encourages him to stepdown to [facility], as he has a h/o noncompliance and drinking. 5. MD met with Dr. Bliss and Jackson yesterday who agreed to provide wraparound services including SA treatment (CAC and/or groups). 6. Voluntary, but agrees to stay until he can talk directly to [facility] staff on Saturday about placement. Subjective: Met with patient with Alia REDMAN, ophelia. He is tolerating the Lamictal and denies any SE's, no rash. Patient says he feels "really groggy" as Clozaril is being increased. He says, "the same thing happened when I first started taking it." MD advised to decrease Remeron while he is feeling so sedated and having no problem sleeping. Patient agreed with this plan. Patient slept 9.5 hrs last night. Patient says he would like to talk to Jackson and Dr. Bliss next week about [facility]. After initially agreeing to go there "if that what they want." He told MD today he wants to go home instead. Voluntary, but agrees to stay until he can talk directly to [facility] staff on Saturday about placement. Denies any SI/HI. Objective: Vital Signs Temp Pulse Resp BP Pulse Ox 36.3 C 61 16 118/58 L 92 04/06/17 06:00 04/06/17 06:00 04/06/17 06:00 04/06/17 06:00 04/06/17 06:00 MSE: Affect: Euthymic Mood: "OK" TP: Linear TC: No SI/HI, no AH/VH Insight/ Judgment: Fair - Time Spent With Patient Time Spent With Patient: 20" - Pending Discharge Pending Discharge Within 24 Hours: No Pending Discharge Within 48 Hours: No ICD10 Worksheet Patient Problems: Problems Problem Status Onset Schizophrenia Acute Alcohol dependence Active Schizoaffective disorder Active Noncompliance with medication regimen Acute Schizoaffective disorder Acute Suicidal ideations Acute
[2017-04-06] MEDS ORDERED: cloZAPine 25 MG TAB PO SCH (13:29)
[2017-04-06] MEDS ORDERED: cloZAPine 100 MG TAB PO SCH (21:00)
[2017-04-07] MEDS: SULFAMETHOX/TMP 800/160 MG 1 TAB PO SCH ×2 (08:36→21:10)
[2017-04-07] MEDS: lamoTRIgine 25 MG TAB PO SCH (08:36)
--- NOTE | 2017-04-07 15:32 | SOAPPROG ---
SOAP Progress Note Assessment/Plan: Assessment: 42 yo man with h/o schizoaffective disorder and alcohol use disorder. He is followed by Dr. Bliss at [facility]. He decompensated since his d/c from [facility] in on 02/09/17. He stopped taking meds sometime before March 25, and has also been drinking alcohol after several years of sobriety. Plan: 04/04/17 16:48 1. Patient agreed to restart Clozaril and Effexor yesterday. He denies any SE's or complaints today. Will increase Clozaril to 50mg HS tonight. 2. Plan is to continue to titrate Clozaril back to previous dose of 300mg HS. He was also taking Effexor XR 300mg. 3. Dr. Bliss or another staff person from [facility] will come to evaluate patient prior to discharge. 4. MD strongly encouraged patient to consider 1:1 therapy with CAC and/or SA groups, but patient says he "won't drink" after he discharges. Patient minimizes role his alcohol use played in his decompensation despite admitting he knows "everything turns to shit" when he starts drinking. 5. Possible d/c early next week. 04/05/17 16:04 1. and Rustam REDMAN, met with Dr. Bliss, patient's OP psych MD, and VITA Paz from [facility]. They were not aware patient had relapsed on alcohol. They both agreed that when patient has been drinking in the past, he can be "very irritable" and "belligerent." This likely accounts for the "profanity" and angry phone calls that Dr. Bliss and [facility] staff received from patient last week. It might also account for his bizarre, erratic behavior and "uncharacteristic" behavior reported by staff and Dr. Bliss. 2. Dr. Bliss is concerned patient might have been in mixed episode of bipolar disorder given his mood swings, irritability and reckless behavior. However, it' s just as likely his condition was the result of alcohol use. Nevertheless, Dr. Bliss requested to d/c Effexor XR and start Lamictal. Patient agreed to this change. 3. [facility] would also like patient to d/c to [facility] on 04/09/17. Patient has agreed. 4. MD talked to patient about the r/b/se's of Antabuse, Naltrexone and Campral. Patient said he has taken Antabuse before and doesn't want to try it again. He also says, "I don't have cravings for alcohol" and doesn't think Naltrexone/ Campral would "help." He is willing to talk to SA counselor. 5. Voluntary 04/06/17 13:24 1. Met with patient with CC, Alia, present. He is tolerating the Lamictal and denies any SE's, no rash. 2. Patient says he feels "really groggy" as Clozaril is being increased. He says , "the same thing happened when I first started taking it." MD advised to decrease Remeron while he is feeling so sedated and having no problem sleeping. Patient agreed with this plan. Patient slept 9.5 hrs last night. 3. Patient says he would like to talk to Jackson and Dr. Bliss next week about [facility]. After initially agreeing to go there "if that what they want." He told MD today he wants to go home instead. 4. Likely d/c middle of next week. [place] [facility] team strongly encourages him to stepdown to [facility], as he has a h/o noncompliance and drinking. 5. MD met with Dr. Bliss and Jackson yesterday who agreed to provide wraparound services including SA treatment (CAC and/or groups). 6. Voluntary, but agrees to stay until he can talk directly to [facility] staff on Saturday about placement. 04/07/17 15:28 1. Increase Clozaril to 125mg PO QHS. Goal is to titrate back to 300mg HS. 2. CBC tomorrow AM 3. Continue on Lamictal - will need to increase to 50mg in [address] Bliss 4. Patient has refused Antabuse. Will considering whether he wants to take Naltrexone/Campral. MD recommended Vivitrol injection. 5. Patient ambivalent about going to [facility]. 6. [facility] will visit patient on Saturday to discuss dispo. 7. Likely to d/c on Saturday or Saturday Subjective: Met with patient, reviewed chart and d/w staff. Patient has been wearing same pants/shirt and beanie hat for past week. He is present in milieu more today. Yesterday he stayed in room and read books. He denies any complaints today, says the Clozaril still makes him tired. He slept 9 hrs last night. Objective: Vital Signs Temp Pulse Resp BP Pulse Ox 36.4 C 74 20 107/63 92 04/07/17 06:00 04/07/17 06:00 04/07/17 06:00 04/07/17 06:00 04/06/17 06:00 MSE: Affect: Euthymic Mood: "Good" TP: Linear TC: No SI/HI, no AH/VH Insight /Judgment: Fair - Time Spent With Patient Time Spent With Patient: 15" - Pending Discharge Pending Discharge Within 24 Hours: No Pending Discharge Within 48 Hours: No ICD10 Worksheet Patient Problems: Problems Problem Status Onset Schizophrenia Acute Alcohol dependence Active Schizoaffective disorder Active Noncompliance with medication regimen Acute Schizoaffective disorder Acute Suicidal ideations Acute
[2017-04-07] MEDS: cloZAPine 100 MG TAB PO SCH (21:09)
[2017-04-07] MEDS: cloZAPine 25 MG TAB PO SCH (21:28)
[2017-04-07] MEDS: LORazepam 0.5 MG TAB PO PRN (22:57)
[2017-04-07] MEDS: MELATONIN 3 MG TAB PO PRN (22:58)
[2017-04-08] MEDS: lamoTRIgine 25 MG TAB PO SCH (09:01)
[2017-04-08] MEDS: SULFAMETHOX/TMP 800/160 MG 1 TAB PO SCH (09:01)
[2017-04-08] MEDS: cloZAPine 100 MG TAB PO SCH (20:46)
[2017-04-08] MEDS: cloZAPine 25 MG TAB PO SCH (20:46)
[2017-04-08] MEDS: MELATONIN 3 MG TAB PO PRN (20:47)
--- NOTE | 2017-04-08 20:57 | SOAPPROG ---
SOAP Progress Note Assessment/Plan: Assessment: Plan: 04/08/17 20:57 Schizoaffective D/o: Appears significantly improved. May need to slow titration of Cloz due to excessive sedation. CR team to visit tomorrow to work on d/c and f/u plans. Subjective: Pt seen, discussed with staff and Dr. Camarena. Chart reviewed. Interacts well with me. Had a nice, appropriate 25 minute conversation. He identifies noise from construction near his home and feeling "too controlled" as reasons for med non-compliance. He states he is willing to voluntarily take meds now. Does not want to go to [facility]. States, "I think they just like to punish me by sending me there." I attempted to reframe this telling him that people worry about him when he is off his meds and exhibiting psychotic sx's and he acknowledges this. Compliant with meds here. C/o some excessive sedation. Objective: Vital Signs Temp Pulse Resp BP Pulse Ox 36.4 C 84 16 112/65 94 04/08/17 06:00 04/08/17 06:00 04/08/17 06:00 04/08/17 06:00 04/08/17 06:00 MSE; Calm, coop. Marginally groomed. Affrect is blunted, stable, approp. Mood is "pretty good." TP generally linear. TC reveals possible paranoia about treatment team acting against him. Denies SI. - Time Spent With Patient Time Spent With Patient: 25" ICD10 Worksheet Patient Problems: Problems Problem Status Onset Schizophrenia Acute Alcohol dependence Active Schizoaffective disorder Active Noncompliance with medication regimen Acute Schizoaffective disorder Acute Suicidal ideations Acute
[2017-04-09 06:52] VITALS: RESP 14
[2017-04-09] MEDS: lamoTRIgine 25 MG TAB PO SCH (08:19)
[2017-04-09] MEDS: cloZAPine 25 MG TAB PO SCH (18:15)
[2017-04-09] MEDS: cloZAPine 100 MG TAB PO SCH (18:15)
[2017-04-10 06:38] VITALS: BP 109/69; PULSE 72; TEMP 97.2; O2SAT 92
[2017-04-10 08:11] LABS: PLATELET COUNT 228 10^3/uL (150-400)
[2017-04-10] MEDS: lamoTRIgine 25 MG TAB PO SCH (08:24)
--- NOTE | 2017-04-14 18:30 | BDS ---
[f rep st] BEHAVIORAL HEALTH DISCHARGE SUMMARY REASON FOR ADMISSION: Patient is a 42-year-old male with a history of schizophrenia, who w as admitted from home after he had come to the attention of the staff at [facility] as he had become again noncompliant with his outpatient medications. Dr. Yuko Bliss petitioned the court fo r a court-ordered evaluation. The patient was brought in on a 72-hour hold. She stated that he salbadorhong chang had become more paranoid and has history of multiple previous suicide attempts when he got to thi s condition, and she was concerned for his safety. A full description of the events preceding admiss ion can be found in Dr. Camarena's admission history dated 04/03/2017. ADMITTING DIAGNOSES: Per Dr. Camarena, schizoaffective disorder, depressed type. Alcohol use disorder s may, psychosocial stressors including recent relapse on alcohol, lack of social support, living far away from his family, recent relocation of his brother to [place], noncompliance with treatment and c hronic mental illness. ADMITTING PHYSICAL EXAMINATION: Performed by Dr. Mat Geiger reveals increased anion gap, likely due to alcohol intoxication. ADMITTING LABORATORY: CBC was normal and was normal on repeat on 04/10/2017. Serum chemistries show ed no significant abnormalities though his nonfasting glucose was elevated at 227. Patient's urine d rug screen was negative for all substances and alcohol was 167 on admission. HOSPITAL COURSE: [facility] was [facility] unit on a court or dered 72 hour evaluation. He was seen initially by Dr. Mansoor Camarena in evaluation on 04/03 and then i n followup on 04/04, 04/05, 04/06 and 04/07. I saw the patient on 04/08 on the day prior to his disc harge and on the day of his discharge on 04/09/2017. He was pleasant and interactive throughout his stay and participated actively in all treatments. He was voluntarily willing to restart his medicati ons and stated to me at least, that he realizes he should not have started drinking again and should have not stopped his medicines. He stated to me that he did not want to return to [facility] because he felt like this was too restricted. Jackson was able to come and talk with him from [facility] however, and he agreed to go to [facility] at the time of discharge after speaking with Jackson. Patient's hospitalization was uncomplicated. He displayed no behavioral problems, voiced no thoughts of suicide and no acts of self-harm and was compliant with all of his medications. CONDITION AT DISCHARGE: Stable. His affect was euthymic, stable and appropriate and he was showing no overt signs of psychosis. He was compliant with medications, was forward thinking and hopeful. DISCHARGE MEDICATIONS: Clozaril 125 mg p.o. at bedtime. I discussed this with Dr. Bliss and she p lans to continue to titrate this back to his previous doses at around 300 mg. We held the titration later in his stay because of excessive sedation. Lamictal 25 mg p.o. daily on a standard titration o f 5 weeks and melatonin 3-6 mg p.o. at bedtime p.r.n. sleep. DISCHARGE DIAGNOSES: Schizoaffective disorder, depressed type, chronic with acute exacerbation; alco hol use disorder, moderate to severe; chronic illness; recurrent illness noncompliance; lack of [facility] supports. DISPOSITION: Patient left the hospital with [place] [facility] staff to go to [facility]. LEGAL COURSE: Patient was converted to a voluntary status at the expiration of his M1 hold. I confirmed the patient received his discharge instructions and followup appointment times. Patient's attitude at the time of discharge was positive. Patient's advanced directives were found on the chart, reviewed by me and he was a full code status t hroughout his stay. There were no pending labs or studies at the time of his discharge. /[id number]/MODL
== END 2017-04-10 09:37 | DRG 885 ==
LOC: BBEH 04-02 13:08
PROVIDERS: ADMIT Psychiatry & Neurology Psychiatry; ATTEND Psychiatry & Neurology Psychiatry
DX: F25.1 Schizoaffective disorder, depressive type (principal); L03.115 Cellulitis of right lower limb; T43.506A Underdosing of unspecified antipsychotics and neuroleptics, initial encounter; Z87.891 Personal history of nicotine dependence; F10.129 Alcohol abuse with intoxication, unspecified; Y90.6 Blood alcohol level of 120-199 mg/100 ml
CPT/HCPCS: 80305; G0480

== ENCOUNTER 2018-01-04 21:47 | Emergency (ER) | payer OTHER ==
[2018-01-04 22:01] VITALS: BP 137/94
--- NOTE | 2018-01-04 22:18 | EDPHY ---
H & P Stated Complaint: ETOH Time Seen by Provider: 01/04/18 21:53 HPI/ROS: Chief Complaint: Alcohol intoxication HPI: 42-year-old male with a history of chronic at abuse and schizoaffective disorder is presenting to the emergency department intoxicated. He has been on a Ellis recently. Denies depression or suicidal ideation at this time. We have received a call from his psychiatrist, Dr. Bliss, the patient psychiatrist. She believes that his symptoms are secondary entirely to his alcohol abuse. He has a history of a this pattern of behavior in the past. She does not believe that he requires a psychiatric admission. She is recommending detox and she can follow up with him as an outpatient. ROS: 10 systems were reviewed and were negative except those elements noted in the HPI. PMH: Schizoaffective disorder, chronic alcohol abuse Social History: No smoking, heavy alcohol use Family History: non-contributory Physical Exam: Gen: Awake, Alert, slurred speech, smells of alcohol HEENT: Nose: no rhinorrhea Eyes: PERRLA, EOMI Mouth: Moist mucosa Neck: Supple, no JVD Chest: nontender, lungs clear to auscultation Heart: S1, S2 normal, no murmur Abd: Soft, non-tender, no guarding Back: no CVA tenderness, no midline tenderness Ext: no edema, non-tender Skin: no rash Neuro: CN II-XII intact, Sensation grossly intact, Strength 5/5 in bilateral upper and lower extremities - Personal History Current Tetanus/Diphtheria Vaccine: No Current Tetanus Diphtheria and Acellular Pertussis (TDAP): No - Medical/Surgical History Hx Asthma: No Hx Chronic Respiratory Disease: No Hx Diabetes: No Hx Cardiac Disease: No Hx Renal Disease: No Hx Cirrhosis: No Hx Alcoholism: No Hx HIV/AIDS: No Hx Splenectomy or Spleen Trauma: No Other PMH: hernia, cellulitis rt foot, schizo. Self harms with hammer on left hand/wrist - Social History Smoking Status: Former smoker Constitutional: Initial Vital Signs Temperature (C) 36.6 C 01/04/18 22:00 Heart Rate 99 01/04/18 22:00 Respiratory Rate 16 01/04/18 22:00 Blood Pressure 137/94 H 01/04/18 22:00 O2 Sat (%) 92 01/04/18 22:00 O2 Delivery Mode Room Air Allergies/Adverse Reactions: No Known Allergies Allergy (Verified 01/04/18 22:01) Home Medications: Medication Instructions Recorded cloZAPine [Clozaril (*)] 25 mg PO HS tab 04/10/17 cloZAPine [Clozaril (*)] 100 mg PO HS tab 04/10/17 lamoTRIgine [LaMICtal] 25 mg PO DAILY tab 04/10/17 Gabapentin 01/04/18 Medical Decision Making ED Course/Re-evaluation: 42-year-old intoxicated male presenting for evaluation. Psychiatry has been involved in his aware of his presentation. They do not feel that he has a danger to himself at this time. Please see the included note in the chart. [facility] and can follow up as an outpatient. He is ambulating unassisted in the emergency department. Departure - Departure Disposition: Home, Routine, Self-Care Clinical Impression: Alcoholic intoxication Condition: Good Instructions: Alcohol Intoxication (ED), Chlordiazepoxide (By mouth) Additional Instructions: Follow up with her psychiatrist tomorrow. Referrals: NONE *PRIMARY CARE P,. [Primary Care Provider] - As per Instructions
[2018-01-04] MEDS ORDERED: CHLORDIAZEPOXIDE 25MG PREPK#6 BTL TAKEHOME ONE (22:19)
--- NOTE | 2018-01-04 22:26 | ASMTLCPROG ---
Notes Note: Notes: Pt's psychiatrist Dr. Charlee Viramontes called to report pt was coming to ER for intoxication and is not reporting SI but has in the past. Per psychiatrist PT gets an invega IM shot 234mg every 4 weeks. Pt can be psychotic. Pt is due next week. Invega PO or Zyprexa can help if needed. She thinks he can use help with detox, but may have ETOH withdrawal symptoms. PT has a history inpt and schizoaffective depression disorder and was inpt on [facility] in mar 2017 Date Signed: 01/04/2018 10:25 PM Electronically Signed By:Tee Clancy
== END 2018-01-04 22:46 | disposition home or self-care (01) ==
LOC: EDUNIT#
DX: F10.129 Alcohol abuse with intoxication, unspecified (principal); F20.0 Paranoid schizophrenia